=== PATIENT | male | born 1960 | race Caucasian/White ===

== ENCOUNTER 2017-02-05 10:35 | Outpatient (CLI) | payer OTHER ==
[2017-02-05 11:07] LABS: ALT (SGPT) 18 U/L (8-55); AST (SGOT) 16 U/L (5-34); Alkaline Phosphatase 70 U/L (40-150); Anion Gap 11 mmol/L (10-20); BUN (Urea Nitrogen) 14 mg/dL (8.4-25.7); Bilirubin, Total 0.2 mg/dL (0.2-1.2); Calc. Creatinine Clearance 0 mL/min (70-130); Calcium 9.4 mg/dL (7.8-10.44); Carbon Dioxide 28 mmol/L (22-29); Chloride 106 mmol/L (98-107); Cholesterol 162 mg/dl (< 200 Desired); Estimated GFR-MDRD Greater than 90; LDL Cholesterol, Calculated 103 mg/dL; Protein, Total 7.1 g/dL (6.0-8.3)
[2017-02-05 11:11] LABS: #Basophils 0.1 thou/uL (0.0-0.2); #Eosinphils 0.1 thou/uL (0.0-0.7); #Lymphocytes 1.5 thou/uL (1.20-3.40); #Monocytes 0.6 thou/uL (0.11-0.59); #Neutrophils 3.7 thou/uL (1.40-6.50); %Basophils 1.4 % (0.0-1.0); %Eosinophils 1.9 % (0.0-10.0); %Lymphocytes 24.8 % (21.0-51.0); %Monocytes 9.8 % (0.0-10.0); Hematocrit 43.9 % (42.0-52.0); Mean Platelet Volume 7.3 fL (7.4-10.4); Red Blood Cell (RBC) Count 4.96 mill/uL (4.70-6.10)
[2017-02-05 11:48] LABS: PTT 26.2 SEC (22.9-36.1); Prothrombin Time 11.9 SEC (12.0-14.7)
--- NOTE | 2017-02-05 12:00 | RAD ---
FRONTAL AND LATERAL IMAGING CHEST: 02/05/2017 HISTORY: Preoperative patient. Foot surgery. COMPARISON: None. FINDINGS: No pneumothorax or pleural fluid. No focal consolidation or alveolar edema. There is an area of relative hyperdensity in the right hilar region, which is felt to most likely be osseous in nature. It is difficult to exclude a right hilar mass or adenopathy on this examination , but this is felt less likely. Calcified node in this region is a possibility as well. No lobar c onsolidation or alveolar edema. IMPRESSION: Focal area of increased density in the right hilar region. This is favored to represent either a ca lcified lymph node or osseous shadows. In order to exclude an underlying hilar lesion, dedicated im aging of the thoracic spine is advised. Recommend thoracic spine CT. CODE T POS: KIRAN
[2017-02-05 13:33] LABS: Hemoglobin A1c 5.8 % (4.0-6.0)
== END 2017-02-05 10:36 | disposition home or self-care (01) ==
LOC: SCSRAD 10:35
PROVIDERS: ATTEND Family Medicine
DX: Z01.818 Encounter for other preprocedural examination (principal); Z00.00 Encounter for general adult medical examination without abnormal findings; E78.5 Hyperlipidemia, unspecified
CPT/HCPCS: 36415; 71020; 80053; 80061; 83036; 84443; 85025; 85610; 85730

== ENCOUNTER 2017-07-14 10:27 | Outpatient (CLI) | payer OTHER | END 2017-07-14 10:28 | disposition home or self-care (01) | LOC: BICULT 10:27 | PROVIDERS: ATTEND Family Medicine | DX: I65.29 Occlusion and stenosis of unspecified carotid artery (principal) | CPT/HCPCS: 93880 ==